=== PATIENT | female | born 1970 | race Caucasian/White ===

== ENCOUNTER → 2020-06-16 | Outpatient (CLI) | payer MEDICARE ==
--- NOTE | 2020-06-17 10:42 | ECHOF ---
Referral Reason:R06.02 SOB MEASUREMENTS -------- HEIGHT: 170.2 cm WEIGHT: 88.0 kg BP: 155/72 RVIDd: 2.9 cm (< 3.3) IVSd: 1.0 cm (0.6 - 1.1) LVIDd: 4.8 cm (3.9 - 5.3) LVPWd: 1.1 cm (0.6 - 1.1) IVSs: 1.6 cm LVIDs: 2.9 cm LVPWs: 1.6 cm LA Diam: 3.2 cm (2.7 - 3.8) LAESV Index (A-L): 9.72 ml/m Ao Diam: 3.3 cm (2.0 - 3.7) AV Cusp: 1.9 cm (1.5 - 2.6) MV EXCURSION: 14.273 mm (> 18.000) MV EF SLOPE: 98 mm/s (70 - 150) EPSS: 0.4 cm MV E Cricket: 0.84 m/s MV DecT: 233 ms MV A Cricket: 0.89 m/s MV E/A Ratio: 0.94 FINDINGS -------- Sinus rhythm. This was a technically adequate study. The left ventricular size is normal. Left ventricular wall thickness is normal. Overall left vent ricular systolic function is normal with, an EF between 55 - 60 %. The right ventricle is normal in size. The left atrium is normal in size. The right atrial size is normal. Interatrial and interventricular septum intact. The aortic valve is trileaflet, and appears structurally normal. No aortic stenosis or regurgitation. The mitral valve is normal. There is trace mitral regurgitation. The tricuspid valve appears structurally normal. No regurgitation noted Trace/mild (physiologic) pulmonic regurgitation. The aortic root size is normal. Normal inferior vena cava with normal inspiratory collapse consistent with estimated right atrial pre ssure of 5 mmHg. Echo free space may represent effusion or a pericardial fat pad. There is no pericardial effusion. CONCLUSIONS -------- 1. Left ventricular wall thickness is normal. 2. Overall left ventricular systolic function is normal with, an EF between 55 - 60 %. 3. The left atrium is normal in size. 4. The aortic valve is trileaflet, and appears structurally normal. No aortic stenosis or regurgitati on. 5. There is trace mitral regurgitation. 6. Trace/mild (physiologic) pulmonic regurgitation. MASTER BLACK BELT: Brinda Sherman RDCS
== END | disposition home or self-care (01) ==
LOC: RADECHMAIN 14:01
PROVIDERS: ATTEND Family Medicine
DX: I37.1 Nonrheumatic pulmonary valve insufficiency (principal)
CPT/HCPCS: 93306

== ENCOUNTER 2021-09-29 06:59 | Day surgery (SDC) | payer MEDICARE ==
[~2021-09-29 06:59] MED LIST: DEXAMETHASONE SOD PHOSPHATE 4 MG/ML 1 ML VIAL IV ONE; LACTATED RINGERS 1,000 ML IV SCH; LIDOCAINE 1% (10MG/ML) FOR IV START INTRADERMA PRN; ONDANSETRON 4 MG/2 ML VIAL IVP ONE; Pre Op ABX Message 1 EACH MISC MISCELLANE ONE; SCOPOLAMINE 1 MG/72 HR PATCH TRANSDERM ONE
[2021-09-29] MEDS ORDERED: METOCLOPRAMIDE 5 MG/ML 2 ML VIAL IVP PRN (07:00)
[2021-09-29] MEDS ORDERED: HYDROmorphone 0.5 MG/0.5 ML SYRINGE IVP PRN (07:00)
[2021-09-29] MEDS ORDERED: KETOROLAC 15 MG/ML 1 ML VIAL ONE (08:05)
[2021-09-29] MEDS ORDERED: fentaNYL (PF) 50 MCG/ML 2 ML AMP ONE (08:05)
[2021-09-29] MEDS ORDERED: MIDAZOLAM 2 MG/2 ML VIAL ONE (08:05)
[2021-09-29] MEDS ORDERED: PROPOFOL 10 MG/ML 20 ML VIAL IV ONE (08:05)
[2021-09-29] MEDS ORDERED: LIDOCAINE 2% INJ 20 MG/ML (2 ML VIAL) ONE (08:05)
--- NOTE | 2021-09-29 08:40 | P.OP ---
Date of Procedure: 09/29/21 Preoperative Diagnosis: Endometrial polyps Postoperative Diagnosis: Same Procedure(s) Performed: Hysteroscopy, D&C, polypectomy Anesthesia: MARY Surgeon: Iman Arvizu Estimated Blood Loss (ml): 20 IV fluids (ml): 500 Urine output (ml): 25 Pathology: other (Endometrial curettings and polyps) Condition: stable Disposition: PACU Operative Findings: Multiple endometrial polyps. No obvious fibroids or uterine defects. Description of Procedure: Patient is brought to the operating suite where a general anesthetic is administered without difficulty. She's placed in the dorsal lithotomy position. The cervix, vagina, perineal bodies are all prepped and draped in usual sterile fashion. The appropriate timeout is performed to assure proper patient and procedural identification. Examination under anesthesia reveals a small anteverted anteflex uterus, negative adnexa bilaterally. Bladder is drained for approximately 25 mL of clear yellow urine. Weighted speculum was placed into the vagina. Anterior lip of the cervix is grasped with an Allis clamp. Uterus sounds to a depth of 7 cm in the anteverted position. The cervix is gently and systematically dilated using Hanks dilators. The hysteroscope was introduced and the cavity is infused with sterile saline. Inspection of the cavity reveals a predominant polyp, smooth and fleshy, at approximately 5:00. Other endometrial tissue is shaggy, possibly consistent with smaller polyps. The hysteroscope was removed. The medium sharp curette is used and all 4 quadrants and the large polyp visualized is removed. Additional tissue was also procured, all sent to pathology for evaluation. When complete the hysteroscope was once again introduced, the cavity appears smooth and clear of any residual tissue or debris. All instrumentation is removed from the vagina. All sponge needle and enhancement counts are correct. Patient is brought back to the recovery room in very good condition with stable vital signs including blood pressure 113/64, pulse 60, 97% O2 saturation. Toradol is given prior to leaving the operative suite. Patient will follow-up with me in the office in 2 weeks for postoperative check.
[2021-09-29 08:44] VITALS: TEMP 97.1
[2021-09-29 09:48] VITALS: BP 134/71; PULSE 72; RESP 17
== END 2021-09-29 10:21 | disposition home or self-care (01) ==
LOC: OR 06:59
PROVIDERS: ATTEND Obstetrics & Gynecology
DX: N84.0 Polyp of corpus uteri (principal); E07.9 Disorder of thyroid, unspecified; M79.7 Fibromyalgia; Z78.0 Asymptomatic menopausal state; Z79.899 Other long term (current) drug therapy; Z79.890 Hormone replacement therapy; Z91.09 Other allergy status, other than to drugs and biological substances; Z98.890 Other specified postprocedural states
CPT/HCPCS: 88305; 58558; J2250; J1100; J2405; J3010; J1885; J2704; J1170; J2001

== ENCOUNTER → 2023-03-16 | Outpatient (CLI) | payer MEDICARE ==
--- NOTE | 2023-03-16 16:12 | P.SLEEP ---
History of Present Illness DATE: 03/16/2023 CONSULTATION/NEW PATIENT EVALUATION HISTORY OF PRESENT ILLNESS/SLEEP-WAKE EVALUATION: 52-year-old lady had been evaluated in the sleep center for possible obstructive sleep apnea hypopnea syndrome. SLEEP SCHEDULE: Usually sleep schedule 34 AM until 123 PM. FALLING ASLEEP: No problems with falling asleep. DURING SLEEP: Patient snores. Positive history of sleep talking, grinding teeth and feeling dry mouth during the sleep No history of hypnogogical hallucinations, sleep paralysis, or cataplexy. DURING THE DAY/WAKE STATE: Patient wake up tired even after local hours of sleep, has difficulties to pay attention, has problems with memory, concentration. Patient always feel fatigue during the day. [place] sleepiness scale is 2. Patient doesn't take naps. PAST MEDICAL HISTORY: Hypothyroidism, tachycardia, depression, anxiety, hyperlipidemia, nasal septum deviation. PAST SURGICAL HISTORY: Status post polyps removed from uterus. MEDICATIONS: Are more thyroid, venlafaxine, propranolol, spironolactone 25 mg once a day, bupropion, Lyrica 300 mg once a day, cyclic benzopyrene, clonazepam 0.5 mg once a day, atorvastatin 40 mg once a day. SOCIAL HISTORY: Negative for smoking or recent using alcohol. FAMILY HISTORY: COPD. REVIEW OF SYSTEMS: Snoring, feeling tiredness and fatigue all the time. No fevers. No double vision. No recent chest pain. No shortness of breath. No abdominal pain. No bleeding episodes. No blood in urine. No seizure episodes. PHYSICAL EXAMINATION: GENERAL: A pleasant patient without any distress. VITAL SIGNS: BP 127/76 , HR 124 , RR 18 , weight 211 pounds, height 5 foot 6.5 inches, body mass index 33.5 . HEENT: PERRLA, EOMI. Evaluation of oropharynx showed tongue protrudes midline, low position of soft palate Mallampati 4. NECK: Supple. No JVD. Thyroid is not palpable. 14 inches in circumference. LUNGS: Clear to percussion and to auscultation. Good air exchange. No wheezing or rhonchi. HEART: S1, S2 regular. No murmurs, gallops or rubs. ABDOMEN: Soft and nontender. Bowel sounds are present. No organomegaly appreciated. EXTREMITIES: No clubbing or cyanosis. HUMAN RESOURCES MANAGER MANUFACTURING: Awake, alert, and oriented x3. Cranial nerves 2 to 7 intact. There is no fasciculation or atrophy noted. No focal deficits observed. ASSESSMENT: 1. Snoring, feeling tiredness, extremely low position of soft palate Mallampati 4. Possible obstructive sleep apnea hypopnea syndrome. 2. Sleep talking. 3. Hypothyroidism. 4. Tachycardia. 5 depression. 6 . anxiety. 7. Hyperlipidemia. 8. Nasal septum deviation. 9 . Status post polypectomy from uterus. PLAN: 1. Polysomnography for evaluation of patient's breathing during sleep. 2. Following plan after reading sleep study. 3. Preferable position during sleep on the side. 4. No driving if patient feels any sleepiness. Patient is aware of civil and criminal liability for unsafe driving. 5. Sleep hygiene with regular sleep time for at least 7.5-8 hours. 6. Watching weight. Thank you very much for referring this patient for consultation. Sincerely, Michael Eduardo MD, PhD, FAASM. Diplomat of [place] [employer], Sleep Medicine Board by [place] [employer] [employer] [facility] [place] Past Medical History Past Medical History: Fibromyalgia, Thyroid Disorder History of Any Multi-Drug Resistant Organisms: None Reported Additional Past Surgical History / Comment(s): D & C Past Anesthesia/Blood Transfusion Reactions: No Reported Reaction Past Psychological History: Anxiety Smoking Status: Never smoker Past Alcohol Use History: Rare Past Drug Use History: None Reported - Past Family History Mother Family Medical History: No Reported History Medications and Allergies Home Medications Medication Instructions Recorded Confirmed Type Amitriptyline HCl 10 mg PO HS 09/25/21 09/29/21 History Cyclobenzaprine [Flexeril] 5 mg PO HS 09/25/21 09/29/21 History Ibuprofen [Motrin Ib] 200 - 400 mg PO Q6H PRN 09/25/21 09/25/21 History Pregabalin [Lyrica] 300 mg PO HS 09/25/21 09/29/21 History Spironolactone 25 mg PO DAILY 09/25/21 09/29/21 History Thyroid,Pork [Director Learning Services Thyroid] 60 mg PO QAM 09/25/21 09/29/21 History Venlafaxine HCl [Effexor] 50 mg PO HS 09/25/21 09/29/21 History clonazePAM [KlonoPIN] 0.5 mg PO BID PRN 09/25/21 09/29/21 History Allergies Allergy/AdvReac Type Severity Reaction Status Date / Time adhesive AdvReac Rash/Hives Verified 09/29/21 07:18 Sleep Note - Sleep Note Sleep Note: Temperature: Pulse Rate: Respiratory Rate: Blood Pressure: SpO2: Height: Weight: BMI: Neck Circumference:
== END ==
LOC: 3 N SLEEP 14:19
PROVIDERS: ATTEND Internal Medicine
DX: R06.83 Snoring (principal); G47.8 Other sleep disorders; E03.9 Hypothyroidism, unspecified; F32.A Depression, unspecified; E78.5 Hyperlipidemia, unspecified; F41.9 Anxiety disorder, unspecified; R00.0 Tachycardia, unspecified; J34.2 Deviated nasal septum; Z87.42 Personal history of other diseases of the female genital tract; Z91.048 Other nonmedicinal substance allergy status; Z79.890 Hormone replacement therapy
CPT/HCPCS: 99211

== ENCOUNTER 2023-04-26 19:42 | Outpatient (CLI) | payer MEDICARE ==
--- NOTE | 2023-04-27 11:07 | P.PCN ---
Description of Procedure: POLYSOMNOGRAPHY REPORT PROCEDURE(S)/DATE(S): Polysomnography 04/26/2023 CLINICAL: Patient has been seen in the sleep center for evaluation of obstructive sleep apnea-hypopnea syndrome. Please see my consultation. Sleep study has been done for evaluation of patient breathing during the sleep. PROCEDURE: The standard montage for clinical polysomnography included the electroencephalogram, the electrooculogram, the mentalis surface electromyography and Lead II cardiography. The respiratory battery consisted of measurements of nasal/buccal air flow, pressure transducer measurements from nose, thoracic and/or abdominal effort and intercostal surface electromyography. Video monitoring has been done to check for any parasomnia events. Nocturnal oxyhemoglobin saturations were obtained by finger oximetry. Step-haskins titration with positive airway pressure was utilized to control the respiratory events, if necessary. RESULTS: During the diagnostic sleep study sleep efficiency was decreased to 77.2 %. Latency to sleep onset was in short range 7.0 min. Sleep architecture showed stage NI was normal 8.9 %, Delta sleep was absent 0 %, REM sleep was 0 %. Respiratory channel showed 0 obstructive apneas, 0 mixed apneas, 0 central apneas, 3 hypopneas with lowest oxygen level 86%. Total apnea hypopnea index was 0.6. Heart rate was in the range between 62 and 72, average 66. EMG showed 0 periodic limb movements per hour with 0 micro-arousals per hour. IMPRESSIONS: 1. No significant respiratory abnormalities have been documented during the sleep study. 2. No significant periodic limb movements have been documented. 3. Loud snoring have been documented Please see other impressions from consultation PLAN: 1. Preferable position during the sleep on the side 2. Losing weight program. 3. Sleep hygiene with regular time in bed for at least 7-1/2 hours. 4. No driving if feeling sleepiness. 5. Consider evaluation by ear nose and throat physician for treatment of snoring. 6. I will see patient for follow-up visit to explain results of the tests and r ecommendations. Thank you very much for allowing me to participate in the management of your patient. Sincerely, Michael Eduardo MD, PhD, FAASM. Diplomat of [place] [employer], Sleep Medicine Board by [place] [employer] [facility] [place]
== END 2023-04-27 06:30 | disposition home or self-care (01) ==
LOC: 3 N SLEEP 19:42
PROVIDERS: ATTEND Internal Medicine
DX: G47.33 Obstructive sleep apnea (adult) (pediatric) (principal); Z91.048 Other nonmedicinal substance allergy status
CPT/HCPCS: 95810

== ENCOUNTER → 2023-05-19 | Outpatient (CLI) | payer MEDICARE ==
--- NOTE | 2023-05-19 15:17 | P.PN ---
Subjective DATE: 05/19/2023 FOLLOW UP VISIT. Patient returned to sleep center for follow-up visit to discuss results of sleep studiy and following plan. I discuss results of sleep study with patient in details. No significant respiratory abnormalities have been documented. No periodic limb movements have been documented. Snoring have been documented.. . Patient continued to have episodes of tiredness during the day. [place] sleepiness scale is 5 today, which is in normal range.. MEDICATIONS:1. Thyroid AUTOMOTIVE PAINTER 60 mcg once a day 2. Propranolol 60 mg once a day 3. Venlafaxine 150 mg once a day 4. Bupropion 150 mg once a day 5. Atorvastatin 40 mg once a day 6. Clonazepam 0.5 mg once a day 7. Cyclobenzaprine During physical exam: GENERAL: A pleasant patient without any distress. VITAL SIGNS: BP 120/77, HR 71, RR 16, weight 220.6, temperature 97.6, oxygen saturation at room air 97%. HEENT: PERRLA, EOMI. NECK: Supple. No JVD. LUNGS: Clear to percussion and to auscultation. Good air exchange. No wheezing or rhonchi. HEART: S1, S2 regular. ABDOMEN: Soft and nontender. EXTREMITIES: No clubbing or cyanosis. WOOL PULLER: Awake, alert, and oriented x3. No focal deficit. Impressions: 1. No significant respiratory abnormalities have been documented during the sleep test 2. No periodic limb movements during sleep study. 3. Snoring have been documented. 4. Some abnormalities of sleep have been documented during the test including absence of delta sleep and REM sleep, which could be secondary to medications and also to first night adaptation responds. 5. Hypothyroidism. 6. History of depression. 7. History of anxiety. 8. Hyperlipidemia. 9. Status post polypectomy from uterus. 10. Mild obesity, patient increased his weight on 9 pounds since previous visit Plan: 1. Sleep hygiene with regular time in bed for at least 8 hours. 2. Losing weight 3. Preferable position during the sleep on the side 4. Precautions related to driving. No driving if feel any sleepiness. Patient is aware about civil and criminal liability for unsafe driving, promised to follow recommendations. 5. Patient may consider evaluation by ear nose and throat physician for snoring. Thank you very much for allowing me to participate in the management of your patient. Michael Eduardo MD, PhD, FAASM. Diplomat of [place] [employer], Sleep Medicine Board by [place] [employer] [facility] [place]
== END ==
LOC: 3 N SLEEP 13:11
PROVIDERS: ATTEND Internal Medicine
DX: G47.52 REM sleep behavior disorder (principal); E78.5 Hyperlipidemia, unspecified; E66.9 Obesity, unspecified; E03.9 Hypothyroidism, unspecified; F32.A Depression, unspecified; F41.9 Anxiety disorder, unspecified; G47.8 Other sleep disorders; R06.83 Snoring; Z98.890 Other specified postprocedural states; Z79.890 Hormone replacement therapy; Z91.048 Other nonmedicinal substance allergy status
CPT/HCPCS: 99212

== ENCOUNTER → 2024-10-26 | Outpatient (CLI) | payer MEDICARE ==
--- NOTE | 2024-10-26 10:37 | XR ---
EXAMINATION TYPE: XR foot complete LT DATE OF EXAM: 10/26/2024 10:28 AM COMPARISON: None CLINICAL INDICATION: Female, 54 years old with history of M79.672 PAIN IN LEFT FOOT; PHH, pain TECHNIQUE: XR foot complete LT examined in the AP, oblique, and lateral projections. FINDINGS: No evidence of any acute osseous pathology. IMPRESSION: 1. Dorsal foot soft tissue swelling without evidence of acute fracture. 2. Multifocal degeneration changes throughout the joints of the foot. [facility], , 10/26/2024 10:35 AM
== END | disposition home or self-care (01) ==
LOC: RADXRMAIN 10:14
PROVIDERS: ATTEND Family Medicine
DX: M19.072 Primary osteoarthritis, left ankle and foot (principal)